=== PATIENT | male | born 1975 | race Caucasian/White ===

== ENCOUNTER → 2020-07-31 15:53 | Outpatient (CLI) | payer OTHER, SELFPAY ==
--- NOTE | ~2020-07-31 | XR_ITS ---
EXAMINATION: XR cervical spine 4-5V EXAM DATE: 07/31/2020 16:27 INDICATION: Neck pain. TECHNIQUE: Cervical spine frontal, lateral, lateral swimmers, and open-mouth odontoid projections. Additional lateral flexion and lateral extension projections obtained. There are no prior studies for comparison. FINDINGS: Mild mid cervical disc disease. Mild to moderate cervical arthropathy. No evidence of sign ificant neural foraminal stenosis. The odontoid process is intact. The lateral masses of C1 line up with C2. Prevertebral soft tissue and pre-dens space are within normal limits. The vertebral bodies a re aligned on all of the lateral projections. IMPRESSION: 1. Mild cervical disc disease, mild to moderate arthropathy. Reviewed, dictated and finalized at location B.
--- NOTE | ~2020-07-31 | XR_ITS ---
EXAMINATION: XR thoracic spine 2V EXAM DATE: 07/31/2020 16:27 INDICATION: Upper back pain. TECHNIQUE: Frontal and lateral projections of the thoracic spine. There is no prior study for jalen fernandez. FINDINGS: The vertebral bodies are aligned in the AP dimension. Vertebral body and disc heights are well-maintained. There are no acute fractures identified. There are no bony erosions identified. Para spinal soft tissue is unremarkable. IMPRESSION: Unremarkable XR thoracic spine 2V exam. Reviewed, dictated and finalized at location B.
== END ==
PROVIDERS: Visit Provider Chiropractor
DX: M54.6 Pain in thoracic spine (principal); M50.90 Cervical disc disorder, unspecified, unspecified cervical region; M47.812 Spondylosis without myelopathy or radiculopathy, cervical region
CPT/HCPCS: 72050; 72070

== ENCOUNTER 2023-01-30 00:47 | Day surgery (SDC) | payer OTHER, SELFPAY ==
[2023-01-18 09:40] VITALS: BMI 31.1
--- NOTE | 2023-01-18 10:06 | PC.NURSE ---
Report to the Outpatient Waiting Room, entrance under the green pavilion located off [facility], at 0830 on 01-30-23. Planned Procedure Time: 1030. Time changes happen often and if your time is changed the preop area will call you the afternoon before. - You and your visitor will be asked to self-screen and do not enter if you have any COVID symptoms. - A mask is optional within the hospital at this time. Patients may have clear liquids (water, carbonated beverages, clear teas, apple juice) until 3 hours prior to surgery with a maximum of 20 ounces. 0730 - No food from midnight until time of surgery - Infants may have breast milk until 4 hours before surgery, formula 6 hours prior to surgery. - Children will be allowed to drink immediately following surgery. If applicable, please bring a bottle or sippy cup to assist with drinking. Juice, water, soda, and popsicles are readily available. For infants on formula, please bring formula the day of surgery. Pacifiers are allowed. Take the following medications with a SIP of water the morning of surgery: None DO NOT STOP ANY OF YOUR OTHER PRESCRIPTION MEDICATIONS PRIOR TO SURGERY ?EXCEPT THE FOLLOWING Medications to discontinue per physician: vitamins and supplements Date to take last dose: 01-27-23 Please no make-up, nail belgian, hairspray, perfume, deodorant, or body powder the day of surgery. No jewelry (including any body piercings) or valuables the day of surgery, leave them at home. Please take a shower or bath the night before, or the morning of, surgery with an antibacterial soap. Wear comfortable, loose fitting clothing. Children are encouraged to wear pajamas. - Jewelry must be removed prior to entering the operating room. Rings and piercings that are not removed may be cut off. - The hospital will not accept responsibility for valuables. - Please leave all valuables, including medications, at home the day of surgery. If you are going home after surgery, a licensed electric lift truck driver must drive you home. - NO public transportation without another adult if you receive anesthesia. - We recommend that an adult stay with you for 24 hours following discharge. - We also recommend that you do not drive, make important decision, drink alcoholic beverages, or take any drugs that were not prescribed by your health care provider for at least 24 hours after your discharge time. For Pediatric surgeries, we recommend two adults accompany the child home. Follow any additional instructions given to you from your surgeon. If you or anyone in your household have experienced Covid symptoms in the past week, please notify your surgeon or the nurse liaison at the phone number below for possible testing. Telephone instructions given to Christiano Acosta and asked if any additional questions and then verbalized understanding. Patient advised to call surgeon office or pre surgery nurse liaison [phone] if any additional questions.
[2023-01-30 09:07] VITALS: BP 122/69; PULSE 82; RESP 20; TEMP 37.2; O2SAT 100
[2023-01-30] MEDS: LACTATED RINGERS 1,000 ML 30 ML IV CONT (09:40)
--- NOTE | 2023-01-30 10:07 | WPDANESEPPF ---
Anes - Initial Pre Proc Eval Procedure: Operation Date: 01/30/23 10:30 Proposed Procedures p Excision Midback Sebaceous Cyst - Amanuel Braun MD Date/Time: 01/30/23 10:07 Surgeon: Amanuel Braun MD Pre Op Diagnosis: midback sebaceous cyst, Cellulitis Patient Data Age: 47 Gender: M Height: 1.7 m Weight: 90.3 kg Last Vital Signs Temp 37.2 C 01/30/23 09:07 Pulse 82 01/30/23 09:07 Resp 20 01/30/23 09:07 BP 122/69 01/30/23 09:07 Pulse Ox 100 01/30/23 09:07 O2 Del Method Room Air 01/30/23 09:07 Allergies Allergy/AdvReac Type Severity Reaction Status Date / Time amoxicillin Allergy Mild Rash Verified 01/30/23 09:11 Home Medications Medication Instructions Recorded Confirmed Type cholecalciferol (vitamin D3) 125 5,000 unit PO DAILY 02/18/19 01/24/23 History mcg (5,000 unit) tablet omega-3 900 mg-dha 320 mg-epa 580 1 cap PO 02/17/20 01/24/23 History mg-fish oil 1,360 mg capsule (Fish Oil) ascorbic acid (vitamin C) 1,000 mg 1 g PO DAILY 02/17/21 01/24/23 History tablet cinnamon bark 500 mg capsule 2,000 mg PO DAILY 02/17/21 01/24/23 History zinc acetate 50 mg (zinc) capsule 50 mg PO DAILY 02/17/21 01/24/23 History (Galzin) magnesium oxide 400 mg PO DAILY 01/13/23 01/24/23 History cetirizine 10 mg capsule (Zyrtec) 10 mg PO DAILY PRN allergies 01/17/23 01/24/23 History sulfamethoxazole 800 1 tablet PO Q12H #20 tabs 01/26/23 01/30/23 Rx mg-trimethoprim 160 mg tablet Patient hx anesthesia problems: none Family hx anesthesia problems: none Results Review: All pre-operative results and documents have been reviewed as part of the pre-operative evaluation. FORMERLY [facility], [facility]1983 Past Medical History Medical History Anxiety Family history of prostate cancer in father Kidney stones Obesity (BMI 30.0-34.9) Unspecified vitamin D deficiency Family History Family History Father Diabetes mellitus Hypertension Mother Family history of malignant neoplasm Social History Social History Smoking status: Never smoker Second hand tobacco smoke exposure: No Alcohol intake: current Alcohol use details: rarely Substance use: never Substance use type: does not use Lack of Transportation: No Lack of Food: Never True Current Housing: I Have Housing Concerned About Future Housing: No Difficulty Paying Gas/Electric Bills: No Difficulty Paying for Meds: No Currently Unemployed: No Education: High School Diploma/GED Difficulty w/ Childcare or Family Care: No Living arrangements: with family Occupation/Education: occupation Gender identity (if verbalized by the patient): Male Spiritual care concerns: No Anes - Eval Final PreProcedure Day of Procedure 01/30/23 10:07 Patient weight: overweight Heart: regular rate and rhythm Lungs: clear to auscultation Airway: Mallampati scale class II Neurological: alert and oriented Last oral intake: >/= 8 hours ASA classification: II Emergent: no Anesthetic plan: proceed Anesthesia type and monitoring: general GIVS and standard monitoring Results Review: All pre-operative results and documents have been reviewed as part of the pre-operative evaluation. Informed Consent: The patient's anesthetic plan and its attendant risks and benefits were discussed with the patient/family/POA. Questions were solicited and answers provided to the satisfaction of the patient/family/POA.
--- NOTE | 2023-01-30 11:02 | WPDHPUPDATE1 ---
History and Physical Update Update Date/Time: 01/30/23 11:02 History and Physical has been reviewed, including an updated exam of the patient. There are NO changes in the patient's condition. Risks, benefits, and alternatives have been discussed and questions answered. Patient agrees to proceed with procedure.
[2023-01-30] MEDS: ceFAZolin 2 GM/D5W 50 ML 2 GM/50 ML BAG IVPB (11:20)
[2023-01-30] MEDS: LIDO 1%/EPINEPHRINE 1:100,000 50 ML VIAL 30 ML INFILTRATE (11:37)
[2023-01-30 12:06] VITALS: BP 97/58; PULSE 84; RESP 16; O2SAT 100
--- NOTE | 2023-01-30 12:08 | W.PM.PROC2 ---
Procedure Note - Detailed Date of Procedure 01/30/23 Pre-op Diagnosis midback sebaceous cyst, Cellulitis Post-op Diagnosis Other (Ruptured mid back sebaceous cyst) Procedure Performed Excision of midback ruptured sebaceous cyst with 7cm intermediate layered wound closure Surgeon Amanuel Braun MD Department Chairperson EDILBERTO Moore Anesthesia MAC and Local Indications Patient is a 47-year-old gentleman who presented with a mid back sebaceous cyst that became infected and was incised and drained in the office. The acute infection has now resolved and so he now presents for excision of the cyst wall remnants. Findings The cyst was [id number]. The length of the intermediate layered wound closure was 7cm. Description of Procedure After informed consent was obtained patient brought to the operating room was placed prone on the operating table in the sedation was administered by anesthesia the area. The mid upper back was then prepped and draped in the usual sterile fashion. A time-out was then performed correctly identifying the patient as well as the procedure to be performed verifying the site marking. Was given some perioperative IV antibiotics. I then anesthetized the area around the cyst utilizing 1% lidocaine mixed with 0.5% Marcaine with some epinephrine. I then made a longitudinal elliptical incision to include the whole cyst wall. Dissection carried deeply down through the dermis of the skin with a scalpel and then utilizing electrocautery and completely excised off the ellipse of tissue encompassing the cyst wall. The cyst measured 4cm in length by 2cm width by 3cm in depth. It was sent to pathology for examination. Hemostasis in the wound was then he achieved utilizing electrocautery. He was then irrigated sterile saline solution hemostasis was good. A 7cm intermediate layered wound closure was then performed. 2-0 Vicryl sutures were used in the deep subcutaneous tissues. This is then followed by a layer of interrupted 3-0 Vicryl sutures in the deep dermal later. The skin edges were then approximated utilizing interrupted 3-0 nylon sutures placed in vertical mattress fashion incision was then cleaned and antibiotic ointment and a sterile dressing was applied. The patient tolerated the procedure well no complications. All sponges, needles, and instrument counts were correct at the end procedure. EBL was _5__cc. The patient was awakened and taken to recovery in stable and satisfactory condition. Implants None Estimated Blood Loss 5 Drains No Packing No Pathology Yes (Cyst sent to pathology) Complications No immediate complications Condition Stable Disposition PACU [facility] Billing Surgery - Charge Forward: Surgery Billing
[2023-01-30 12:30] VITALS: BP 105/61; PULSE 78; RESP 14; O2SAT 98
[2023-01-30 13:00] VITALS: BP 110/73; PULSE 56; RESP 14
== END 2023-01-30 13:18 | disposition home or self-care (01) ==
PROVIDERS: PCP Family Medicine; Visit Provider Surgery
PROC: (CPT 11406; principal; 2023-01-30 10:30)
DX: L72.3 Sebaceous cyst (principal); F41.9 Anxiety disorder, unspecified; E55.9 Vitamin D deficiency, unspecified; Z80.42 Family history of malignant neoplasm of prostate
CPT/HCPCS: 11406; 12032; 88305; A9270; J0690; J2250; J2704; J3010; J7120

== ENCOUNTER 2023-10-26 01:30 | Day surgery (SDC) | payer OTHER, SELFPAY ==
[2023-10-20 09:07] VITALS: BMI 32.7
[2023-10-26 06:47] VITALS: BP 132/84; PULSE 93; RESP 16; TEMP 36.2; O2SAT 100; BMI 31.7
[2023-10-26] MEDS: LACTATED RINGERS 1,000 ML 150 ML IV CONT (06:54)
--- NOTE | 2023-10-26 07:30 | WPDANESEPPF ---
Anes - Initial Pre Proc Eval Procedure: Operation Date: 10/26/23 08:00 Proposed Procedures p Screening Colonoscopy - Eliel Guido DO Date/Time: 10/26/23 07:30 Surgeon: Eliel Guido DO Pre Op Diagnosis: Screening for malignant neoplasm of colon Patient Data Age: 48 Gender: M Height: 1.68 m Weight: 89.2 kg Last Vital Signs Temp 97.2 F L 10/26/23 06:47 Pulse 93 10/26/23 06:47 Resp 16 10/26/23 06:47 BP 132/84 10/26/23 06:47 Pulse Ox 100 10/26/23 06:47 O2 Del Method Room Air 10/26/23 06:47 Allergies Allergy/AdvReac Type Severity Reaction Status Date / Time amoxicillin Allergy Mild Rash Verified 10/26/23 06:46 Home Medications Medication Instructions Recorded Confirmed Type cholecalciferol (vitamin D3) 125 5,000 unit PO DAILY 02/18/19 10/26/23 History mcg (5,000 unit) tablet omega-3 900 mg-dha 320 mg-epa 580 1 cap PO DAILY 02/17/20 10/26/23 History mg-fish oil 1,360 mg capsule (Fish Oil) ascorbic acid (vitamin C) 1,000 mg 1 g PO DAILY 02/17/21 10/26/23 History tablet cinnamon bark 500 mg capsule 2,000 mg PO DAILY 02/17/21 10/26/23 History zinc acetate 50 mg (zinc) capsule 50 mg PO DAILY 02/17/21 10/26/23 History (Galzin) magnesium oxide 400 mg PO DAILY 01/13/23 10/26/23 History cetirizine 10 mg capsule (Zyrtec) 10 mg PO DAILY PRN Allergy Symptoms 10/13/23 10/26/23 History Patient hx anesthesia problems: none Family hx anesthesia problems: none Results Review: All pre-operative results and documents have been reviewed as part of the pre-operative evaluation. [facility] Past Medical History Medical History Anxiety Family history of prostate cancer in father Kidney stones Obesity (BMI 30.0-34.9) Unspecified vitamin D deficiency Surgical History Surgical History Hx of excision of mass Excision of midback ruptured sebaceous cyst with 7cm intermediate layered wound closure 01/30/23 SAW Family History Family History Father Diabetes mellitus Hypertension Mother Family history of malignant neoplasm Social History Social History Smoking status: Never smoker Second hand tobacco smoke exposure: No Alcohol intake: current Alcohol use details: rarely Substance use: never Substance use type: does not use Lack of Transportation: No Lack of Food: Never True Current Housing: I Have Housing Concerned About Future Housing: No Difficulty Paying Gas/Electric Bills: No Difficulty Paying for Meds: No Currently Unemployed: No Education: High School Diploma/GED Difficulty w/ Childcare or Family Care: No Living arrangements: with family Occupation/Education: occupation Gender identity (if verbalized by the patient): Male Spiritual care concerns: No Anes - Eval Final PreProcedure Day of Procedure 10/26/23 07:30 Patient weight: obese Heart: regular rate and rhythm Lungs: clear to auscultation Airway: Mallampati scale class II Neurological: alert and oriented Last oral intake: >/= 8 hours ASA classification: II Emergent: no Anesthetic plan: proceed Anesthesia type and monitoring: general GIVS and standard monitoring Results Review: All pre-operative results and documents have been reviewed as part of the pre-operative evaluation. Informed Consent: The patient's anesthetic plan and its attendant risks and benefits were discussed with the patient/family/POA. Questions were solicited and answers provided to the satisfaction of the patient/family/POA.
--- NOTE | 2023-10-26 07:49 | PM.IMHP ---
H&P: HPI History of Present Illness Date/Time: 10/26/23 07:49 Chief Complaint: screening for colorectal cancer Narrative: this is a 48-year-old man who presents for colonoscopy. He denies any hematochezia or melena. He denies family history of colon cancer. He has never had a colonoscopy before. Review of Systems Review of Systems: All systems reviewed & are unremarkable except as noted in HPI and below Constitutional: Constitutional: Denies chills, Denies fever(s), Denies headache(s) and Denies weight loss Eyes: Eyes: Denies change in vision ENT: Denies dizziness, Denies headache(s), Denies neck mass and Denies throat swelling Cardiovascular: Cardiovascular: Denies chest pain, Denies lightheadedness and Denies dyspnea Respiratory: Respiratory: Denies cough, Denies dyspnea and Denies wheezing Gastrointestinal: Gastrointestinal: Denies abdominal pain, Denies change in bowel habits, Denies nausea and Denies vomiting Genitourinary: Genitourinary: Denies hematuria and Denies dysuria Musculoskeletal: Musculoskeletal: Reports as per HPI Integumentary/Breasts: Skin/Breast: Reports as per HPI Neurologic: Denies dizziness and Denies headache(s) Allergic/Immunologic: Allergic/Immunologic: Denies throat swelling and Denies wheezing PMFSH Past Medical History Medical History Anxiety Family history of prostate cancer in father Kidney stones Obesity (BMI 30.0-34.9) Unspecified vitamin D deficiency Surgical History Surgical History Hx of excision of mass Excision of midback ruptured sebaceous cyst with 7cm intermediate layered wound closure 01/30/23 SAW Family History Family History Father Diabetes mellitus Hypertension Mother Family history of malignant neoplasm Social History Social History Smoking status: Never smoker Second hand tobacco smoke exposure: No Alcohol intake: current Alcohol use details: rarely Substance use: never Substance use type: does not use Lack of Transportation: No Lack of Food: Never True Current Housing: I Have Housing Concerned About Future Housing: No Difficulty Paying Gas/Electric Bills: No Difficulty Paying for Meds: No Currently Unemployed: No Education: High School Diploma/GED Difficulty w/ Childcare or Family Care: No Living arrangements: with family Occupation/Education: occupation Gender identity (if verbalized by the patient): Male Spiritual care concerns: No Meds Home Medications and Allergies Home Medications Medication Instructions Recorded Confirmed Type cholecalciferol (vitamin D3) 125 5,000 unit PO DAILY 02/18/19 10/26/23 History mcg (5,000 unit) tablet omega-3 900 mg-dha 320 mg-epa 580 1 cap PO DAILY 02/17/20 10/26/23 History mg-fish oil 1,360 mg capsule (Fish Oil) ascorbic acid (vitamin C) 1,000 mg 1 g PO DAILY 02/17/21 10/26/23 History tablet cinnamon bark 500 mg capsule 2,000 mg PO DAILY 02/17/21 10/26/23 History zinc acetate 50 mg (zinc) capsule 50 mg PO DAILY 02/17/21 10/26/23 History (Galzin) magnesium oxide 400 mg PO DAILY 01/13/23 10/26/23 History cetirizine 10 mg capsule (Zyrtec) 10 mg PO DAILY PRN Allergy Symptoms 10/13/23 10/26/23 History Allergies Allergy/AdvReac Type Severity Reaction Status Date / Time amoxicillin Allergy Mild Rash Verified 10/26/23 06:46 Vital Signs Vital Signs - 24 hr 10/26/23 06:47 Temperature 36.2 C L Pulse Rate 93 Respiratory Rate 16 Blood Pressure 132/84 Pulse Oximetry 100 Oxygen Delivery Room Air Exam Const: General: no acute distress and alert Orientation/consciousness: patient oriented x3 HENMT: Head: normocephalic and atraumatic Ears: hearing grossly normal bilaterally Face/Nose/Sinus: Normal nares pre
[2023-10-26 08:12] VITALS: BP 106/67; PULSE 76; RESP 15; O2SAT 97
[2023-10-26 08:22] VITALS: BP 107/67; PULSE 67; RESP 20; O2SAT 97
[2023-10-26 08:32] VITALS: BP 113/76; PULSE 73; RESP 22; O2SAT 97
== END 2023-10-26 08:38 | disposition home or self-care (01) ==
PROVIDERS: PCP Family Medicine; Visit Provider Surgery
PROC: 0DJD8ZZ Inspection of Lower Intestinal Tract, Via Natural or Artificial Opening Endoscopic (ICD-10-PCS; CPT 45378; principal; 2023-10-26 08:00)
DX: Z12.11 Encounter for screening for malignant neoplasm of colon (principal); E55.9 Vitamin D deficiency, unspecified; E66.9 Obesity, unspecified; Z68.31 Body mass index [BMI] 31.0-31.9, adult
CPT/HCPCS: 45378; J2704; J7120